=== PATIENT | male | born 1995 | race Caucasian/White ===

== ENCOUNTER 2016-04-17 02:14 | Emergency (ER) | payer BC ==
[~2016-04-17] VITALS: Ht 172.7 cm; Wt 78.1 kg
[2016-04-17 02:37] VITALS: TEMP 36.6; O2SAT 95; Ht 172.7 cm; Wt 78.1 kg
[2016-04-17] MEDS ORDERED: XYLOCAINE 1%/SOD BICARB 20 ML VIAL INFIL ONE (02:45)
--- NOTE | 2016-04-17 02:46 | EMERGENCY ROOM VISIT NOTE ---
History First contact with patient: 02:15 Chief Complaint: ALCOHOL OVERDOSE Stated Complaint: LACERATION/ALCOHOL OVERDOSE History of Present Illness The patient is a 20 year old male who presents to the Emergency Department via EMS for evaluation of alcohol intoxication and laceration. It is reported by EMS that the patient was drinking this evening with friends when he sustained a fall. It is uncertain as to what the patient fell from. It was thought to be a ground level fall. The patient is unable to communicate what occurred as he cannot express his words. He is intoxicated. History of present illness is limited secondary to his current alcohol desiccation and mental state. Nursing staff was reportedly able to speak to the patient's mother. She received a phone call from the patient's friends who were drinking with the patient tonight. Apparently, the patient sustained a ground-level fall striking his face on the ground. There was no loss of consciousness. They reportedly "dragged" the patient home. The friends contacted the patient's mother as they report that he was not acting his appropriate self. They report that he was confused and this is not typical even when intoxicated. Mother reports the patient is up-to-date on all vaccinations and immunizations, specifically tetanus. He does not take any daily medications. Review of Systems A complete 10-point Review of Systems was discussed with the patient, with pertinent positives and negatives listed in the History of Present Illness. All remaining Review of Systems questions can be considered negative unless otherwise specified. Social History Smokeless Tobacco Use: No Alcohol Use: occasionally Drug Use: none Marital Status: single Housing Status: lives with roommate Occupation Status: [employer] student Current/Historical Medications No Active Prescriptions or Reported Meds Allergies Coded Allergies: No Known Allergies (Unverified , 04/17/16) Physical Exam Vital Signs Date Time Temp Pulse Resp B/P Pulse Ox O2 Delivery O2 Flow Rate FiO2 04/17/16 03:51 79 18 134/67 99 Room Air 04/17/16 03:29 95 16 141/65 99 Room Air 04/17/16 02:48 109 22 164/81 99 Room Air 04/17/16 02:37 107 04/17/16 02:37 36.6 120 22 170/110 95 Room Air 04/17/16 02:37 95 Room Air Pain Rating (0-10): 0 Physical Exam VITAL SIGNS - Vital signs and nursing notes were reviewed. GENERAL - 20-year-old male appearing his stated age. Patient is anxious and attempting to communicate. His words make no sense. He becomes frustrated at this. HEAD - Normocephalic. Large 4.0 cm stellate laceration noted to the LEFT-sided forehead. Edges gape apart with traction. No deep structures appreciated. No Dallas's Sign or Raccoon's Eyes. No depressed skull fractures palpable. EYES - PERRL with EOMI bilaterally. Without subconjunctival hemorrhage. Palpebral conjunctiva pink and moist with no injection. EARS - No deformities of external structures noted on gross examination bilaterally. No hemotympanum present. No tympanic perforation noted. Handle of malleus, umbo, cone of light, pars tensa/flaccid all easily visualized. NOSE - Midline and without cyanosis. No epistaxis or clear watery discharge noted. Septum midline without deviation. No septal hematoma noted. No overlying ecchymosis noted. MOUTH/OROPHARYNX - Without perioral cyanosis. Tongue midline with equal elevation of palate bilaterally. No blood noted in the oropharynx. No tonsillar hypertrophy, erythema, or exudates noted. No dental fractures noted. NECK - Cervical collar in place. No tenderness to palpation over the cervical spinous processes. No cervical paraspinal muscle tenderness noted. LUNGS - Chest wall symmetric without accessory muscle use, intercostals retractions, or central cyanosis. Normal vesicular breath sounds CTA B/L. No wheezes, rales, or rhonchi appreciated. CARDIAC - RRR with S1/S2. No murmur, rubs, or gallops appreciated. ABDOMEN - Abdominal contour flat without pulsations or visible masses. No tenderness to palpation throughout. BS normoactive all four quadrants. EXTREMITIES - No gross deformities noted of the extremities. +5/5 strength noted in UE/LE bilaterally. NEUROLOGIC - Cranial nerves II through XII grossly intact. Patellar reflexes +2/ 4. PSYCH - visibly intoxicated. Patient has trouble formulating words. He tends to communicate, however his words do not make sense. Medical Decision & Procedures ER Provider Diagnostic Interpretation: Radiological imaging and reports were reviewed by myself. Radiologist's Interpretation per [facility] as follows: CT HEAD: No intracranial hemorrhage or mass effect. Region overlying the left periorbital/left frontal region. No underlying fracture appreciated. Minimal mucosal thickening of the left ethmoid and bilateral maxillary sinuses. CT C SPINE: No acute fracture or dislocation. Chest x-ray was obtained and reviewed by myself. No acute cardiopulmonary processes appreciated per my interpretation. Radiologist's impression unavailable at the time of dictation. Laboratory Results 04/17/16 02:35 Red Blood Count 5.00, Mean Corpuscular Volume 86.2, Mean Corpuscular Hemoglobin 30.6, Mean Corpuscular Hemoglobin Concent 35.5, Mean Platelet Volume 8.4, Neutrophils (%) (Auto) 46.2, Lymphocytes (%) (Auto) 44.2, Monocytes (%) (Auto) 7.0, Eosinophils (%) (Auto) 1.6, Basophils (%) (Auto) 0.5, Neutrophils # (Auto) 2.93, Lymphocytes # (Auto) 2.80, Monocytes # (Auto) 0.44, Eosinophils # (Auto) 0.10, Basophils # (Auto) 0.03 04/17/16 02:35 Test 04/17/16 02:35 04/17/16 03:50 White Blood Count 6.33 K/uL (4.8-10.8) Red Blood Count 5.00 M/uL (4.7-6.1) Hemoglobin 15.3 g/dL (14.0-18.0) Hematocrit 43.1 % (42-52) Mean Corpuscular Volume 86.2 fL (80-100) Mean Corpuscular Hemoglobin 30.6 pg (25-34) Mean Corpuscular Hemoglobin Concent 35.5 g/dl (32-36) Platelet Count 213 K/uL (130-400) Mean Platelet Volume 8.4 fL (7.4-10.4) Neutrophils (%) (Auto) 46.2 % Lymphocytes (%) (Auto) 44.2 % Monocytes (%) (Auto) 7.0 % Eosinophils (%) (Auto) 1.6 % Basophils (%) (Auto) 0.5 % Neutrophils # (Auto) 2.93 K/uL (1.4-6.5) Lymphocytes # (Auto) 2.80 K/uL (1.2-3.4) Monocytes # (Auto) 0.44 K/uL (0.11-0.59) Eosinophils # (Auto) 0.10 K/uL (0-0.5) Basophils # (Auto) 0.03 K/uL (0-0.2) RDW Standard Deviation 38.4 fL (36.4-46.3) RDW Coefficient of Variation 12.2 % (11.5-14.5) Immature Granulocyte % (Auto) 0.5 % Immature Granulocyte # (Auto) 0.03 K/uL (0.00-0.02) Prothrombin Time 10.9 SECONDS (9.0-12.0) Prothromb Time International Ratio 1.0 (0.9-1.1) Activated Partial Thromboplast Time 24.7 SECONDS (21.0-31.0) Partial Thromboplastin Ratio 1.0 Anion Gap 11.0 mmol/L (3-11) Est Creatinine Clear Calc Drug Dose 117.3 ml/min Estimated GFR () 129.0 Estimated GFR (Non- 111.3 BUN/Creatinine Ratio 14.5 (10-20) Calcium Level 8.5 mg/dl (8.5-10.1) Magnesium Level 2.2 mg/dl (1.8-2.4) Total Bilirubin 0.3 mg/dl (0.2-1) Aspartate Amino Transf (AST/SGOT) 27 U/L (15-37) Alanine Aminotransferase (ALT/SGPT) 30 U/L (12-78) Alkaline Phosphatase 52 U/L (45-117) Total Protein 7.5 gm/dl (6.4-8.2) Albumin 4.4 gm/dl (3.4-5.0) Globulin 3.1 gm/dl (2.5-4.0) Albumin/Globulin Ratio 1.4 (0.9-2) Lipase 135 U/L (73-393) Ethyl Alcohol mg/dL 240.0 mg/dl (0-3) Medications Administered Medications (Trade) Dose Ordered Sig/Johnny Route Start Time Stop Time Status Last Admin Dose Admin Sodium Chloride (Nss 1000ml) 1,000 ml @ 999 mls/hr Q1H1M STAT IV 04/17/16 03:14 04/17/16 04:14 04/17/16 03:27 999 MLS/HR Procedure Verbal consent was obtained prior to performing the procedure. 3.0 cc of 1% buffered lidocaine was used to anesthetize the LEFT forehead laceration. The wound was cleansed and prepped in the typical sterile fashion utilizing normal saline and Betadine. The wound was sterilely draped. Once proper anesthetization was established, the wound was further examined and demonstrated a full-thickness laceration described above. The wound was copiously irrigated with normal saline and Betadine. The wound was closed using 3 simple interrupted 6-0 Vicryl sutures and 13 simple, 6-0 nylon sutures with the wound edges being well approximated. Patient tolerated the procedure well. No complications were met. The wound was cleansed and dressed with a Bacitracin dressing. ED Course Patient was initially seen and evaluated in room B4B. on assessment, the patient is having difficulty expressing words and his carpets feet. This is concerning given his exam findings consistent with head injury. Because of this , the patient was moved to the trauma bay. He was sent emergently to the CT suite where CT of the head and cervical spine were obtained. Labs were drawn, saline lock in place. The patient was hydrated with a 1000 mL normal saline bolus. I was able to speak with Dr. Cuadra of trauma surgery as well as Dr. Zavaleta from the emergency department at [facility]. They accept the patient in transfer. Patient will be transferred via helicopter. Laboratory results demonstrate no acute leukocytosis, worrisome anemia, or bandemia. The patient has no significant electrolyte abnormalities. Medical alcohol was found to be 240.0 mg/dL. I did speak with the patient's mother, Silvia. I made her aware of all labs and imaging studies. All questions were answered to her satisfaction. She will be meeting the patient at [facility]. Patient still remains somewhat confused and has issues with his speech. Laceration repair was performed as described above. Patient was transferred in fair condition to [facility] via [facility]. Medical Decision Given the patient's presentation and exam findings, I did elect to perform the above-mentioned workup. My initial concern for significant intracranial injury after sustaining a fall while intoxicated. The patient presents and is not making sense. He is confused. This is not atypical alcohol overdose presentation. He has no focal neurological deficits, thankfully, however his speech is certainly of concern. An emergent CT of the head and neck were obtained. He has no other signs of physical trauma whatsoever. His labs were otherwise unremarkable. His medical alcohol was elevated at 240.0 mg/dL. My suspicion, given the negative CT of the head and cervical spine, is that the patient has experienced a significant concussion/closed head injury which is worsened by his current state of alcohol intoxication. Regardless, the patient warrants close evaluation with facility has capabilities including neurosurgery. [facility] [address] was kind enough to accept the patient in transfer for continued management. Patient's parents were comfortable with this disposition and plan. Patient transferred in fair condition via [facility]. In the evaluation and treatment of this patient, the following differential diagnoses were considered: Concussion, Contrecoup Injury, Brain Tumor, Depression, Encephalitis, Hypothyroidism, Meningitis, CVA, TIA, Migraine, Cluster Headache, Intracranial Abnormality, Intracranial Hemorrhage, Subdural Hematoma, Subarachnoid Hemorrhage, Hydrocephalus. Impression Primary Impression: Head injury Additional Impressions: Alcohol intoxication, Garbled speech, Facial laceration, Fall from ground level Critical Care I have personally spent greater than 45 minutes of critical care time in the direct management of this patient. This includes bedside care, interpretation of diagnostic studies, and testing, discussion with consultants, patient, and family members, and other required patient management activities. This 45 minutes is in excess of all separately billable procedures. Departure Information Dispostion Transfer Acute Care Facility Condition FAIR Prescriptions No Active Prescriptions or Reported Meds Patient Instructions A Signature Page, My [facility]
[2016-04-17 02:49] LABS: BASO % 0.5 %; BASO ABS # 0.03 K/uL (0-0.2); COMPLETE YES; EOS % 1.6 %; HEMATOCRIT 43.1 % (42-52); IG% 0.5 %; LYMPH % 44.2 %; MEAN CELL VOLUME 86.2 fL (80-100); MEAN CORPUSCULAR HEMOGLOBIN 30.6 pg (25-34); MEAN CORPUSCULAR HGB CONC 35.5 g/dl (32-36); MEAN PLATELET VOLUME 8.4 fL (7.4-10.4); NEUT % 46.2 %; PLATELET COUNT 213 K/uL (130-400); WHITE BLOOD COUNT 6.33 K/uL (4.8-10.8)
[2016-04-17 03:05] LABS: PROTHROMBIN TIME (PATIENT) 10.9 SECONDS (9.0-12.0)
[2016-04-17 03:06] LABS: BUN/CREATININE RATIO 14.5 (10-20); CALCIUM 8.5 mg/dl (8.5-10.1); CREATININE 0.98 mg/dl (0.60-1.40); MAGNESIUM 2.2 mg/dl (1.8-2.4); POTASSIUM 3.2 mmol/L (3.5-5.1)
[2016-04-17 03:09] LABS: ALB/GLOB RATIO 1.4 (0.9-2)
[2016-04-17] MEDS ORDERED: SODIUM CHLORIDE 0.9% 1000ML 1,000 ML IV STA (03:14)
[2016-04-17 04:00] VITALS: BP 128/66; PULSE 81; O2SAT 96
[2016-04-17 04:12] LABS: MANUAL MICROSCOPIC REQUIRED? NO; REVIEW REQ? NO; URINE APPEARANCE CLEAR (CLEAR); URINE BILIRUBIN NEG (NEG); URINE COLOR COLORLESS; URINE NITRITE NEG (NEG); URINE SPECIFIC GRAVITY <= 1.005 (1.000-1.030); UROBILINOGEN NEG (NEG)
[2016-04-17 04:13] LABS: ZZUR CULT IF INDIC CLEAN CATCH NO
[2016-04-17 04:27] LABS: BENZODIAZEPINE, URINE NEG (NEG); COCAINE,URINE NEG (NEG); PHENCYCLIDINE, URINE NEG (NEG)
--- NOTE | 2016-04-17 05:55 | EMERGENCY ROOM VISIT NOTE ---
ED Visit Note First contact with patient: 02:15 I saw this patient in conjunction with Radames Rico. I agree with his decision- making interim plan. I independently evaluated this patient. He had obvious trauma to his left forehead. He went for CT scan of the brain and cervical spine which were unremarkable. However, the patient continued to exhibit signs of a head injury as he had garbled speech and seems somewhat confused. The patient will be transferred to [facility] by helicopter as a trauma patient.
--- NOTE | 2016-04-17 06:36 | DIAGNOSTIC IMAGING REPORT ---
CT OF THE CERVICAL SPINE CLINICAL HISTORY: Neck pain status post trauma COMPARISON STUDY: No previous studies for comparison. CT DOSE: 1060.10 mGy.cm TECHNIQUE: CT scan of the cervical spine was performed from the skull base to the thoracic inlet. Images are reviewed in the axial, sagittal, and coronal planes. IV contrast was not administered for this examination. FINDINGS: The visualized portions of the lung apices reveal no evidence of pneumothorax. The prevertebral soft tissues are normal. No fractures or subluxations are visualized. IMPRESSION: No evidence of acute fracture or traumatic subluxation. Electronically signed by: Phillip Guerra M.D. 04/17/2016 6:34 AM Dictated Date/Time: 04/17/2016 6:33 AM
--- NOTE | 2016-04-17 06:46 | DIAGNOSTIC IMAGING REPORT ---
CHEST ONE VIEW PORTABLE CLINICAL HISTORY: Trauma. Patient is incoherent. COMPARISON STUDY: No previous studies for comparison. FINDINGS: The cardiac and mediastinal contours are normal. There is no evidence of focal pulmonary consolidation. There is no evidence of failure. No pleural effusions are visualized.[ No pneumothorax is visualized. IMPRESSION: No active disease in the chest. Electronically signed by: Phillip Guerra M.D. 04/17/2016 6:44 AM Dictated Date/Time: 04/17/2016 6:44 AM
--- NOTE | 2016-04-17 06:52 | DIAGNOSTIC IMAGING REPORT ---
CT OF THE HEAD WITHOUT CONTRAST CLINICAL HISTORY: Fall with injury. COMPARISON STUDY: No previous studies for comparison. TECHNIQUE: Helical axial images of the head were obtained without IV contrast. Automated exposure control was utilized for the study. FINDINGS: No acute intracranial hemorrhage, midline shift or mass effect is present. Ventricular system is normal per the basilar cisterns are patent. There are no extra-axial collections. Lopez-white differentiation is maintained. There is a small contusion and laceration superolateral to the left orbit. Globes are intact. There is no calvarial fracture. There is mild mucosal thickening of the sinuses. IMPRESSION: 1. No acute intracranial findings. 2. Small contusion and laceration superolateral to the left orbit. No calvarial fracture. Electronically signed by: Holger Guerrero M.D. 04/17/2016 6:50 AM Dictated Date/Time: 04/17/2016 6:46 AM
== END 2016-04-17 04:15 | disposition short-term general hospital (02) ==
LOC: EDBD 02:14 → C.EDB 02:15
DX: S01.81XA Laceration without foreign body of other part of head, initial encounter (principal); S09.90XA Unspecified injury of head, initial encounter; R47.89 Other speech disturbances; W19.XXXA Unspecified fall, initial encounter; F10.129 Alcohol abuse with intoxication, unspecified